=== PATIENT | female | born 1960 | race Caucasian/White ===

== ENCOUNTER → 2020-08-18 09:38 | Outpatient (BNVA) | payer BC, SELFPAY | PROVIDERS: PCP Pediatrics; Visit Provider Surgery ==

== ENCOUNTER → 2021-08-17 09:28 | Outpatient (BNVA) | payer BC, SELFPAY | PROVIDERS: PCP Pediatrics; Visit Provider Surgery | DX: R91.1 Solitary pulmonary nodule (principal); Z79.899 Other long term (current) drug therapy; Z87.891 Personal history of nicotine dependence | CPT/HCPCS: 99212 ==

== ENCOUNTER 2021-11-16 08:56 | Outpatient (REF) | payer BC, SELFPAY ==
--- NOTE | 2021-11-16 12:44 | PFT_ITS ---
INDICATION: Preop for thoracic surgery. SPIROMETRY: FEV1 to FVC of 82% with an FEV1 of 2.41 L, 105% predicted, an FVC of 2.94 L, which is 99% predicted. No significant response to bronchodilators noted. Maximum voluntary ventilation 97% predicted. LUNG VOLUMES: Total lung capacity 94% predicted with an expiratory reserve volume of 58% predicted. DIFFUSION CAPACITY: DLCO 89% predicted. COMPARISONS: None. INTERPRETATION: No obstructive nor restrictive ventilatory defects have been identified. No significant response to bronchodilators noted. Normal maximum voluntary ventilation. Lung volumes are within normal limits. Diffusion capacity is also within normal limits. Otherwise normal PFTs. Clinical correlation warranted. Emery Castro MD MR/MODChar / [id number]
== END 2021-11-16 08:57 | disposition home or self-care (01) ==
LOC: HO.RESP 08:56
PROVIDERS: Visit Provider Surgery
DX: R91.1 Solitary pulmonary nodule (principal)
CPT/HCPCS: 94060; 94727; 94729